=== PATIENT | female | born 1975 | race Hispanic/Latino ===

== ENCOUNTER 2023-12-30 16:00 | Observation (INO) | payer BC ==
[~2023-12-30] VITALS: Ht 152.4 cm; Wt 62.6 kg
[2023-12-30 17:11] LABS: ADD UA MICROSCOPIC YES; APPEARANCE,URINE CLOUDY (CLEAR); BILIRUBIN,URINE NEGATIVE (NEGATIVE); COLOR,URINE LIGHT-YELLOW (YELLOW); GLUCOSE, URINE (UA) NEGATIVE (NEGATIVE); KETONES,URINE 10 mg/dL (NEGATIVE); LEUKOCYTE ESTERASE ,URINE NEGATIVE Leu/uL (NEGATIVE); NITRATE,URINE NEGATIVE (NEGATIVE); OCCULT BLOOD,URINE MODERATE (NEGATIVE); PROTEIN,URINE 10 mg/dL (NEGATIVE)
[2023-12-30 17:14] LABS: BACTERIA,URINE RARE /HPF (None Seen); MUCUS,URINE RARE LPF (None Seen); SQUAMOUS EPITHELIAL CELL,UR MOD /HPF (0-2); YEAST,URINE BUDDING RARE /HPF (None Seen)
[2023-12-30 17:17] LABS: BASOPHILS # (AUTO) 0.04 K/uL (0.00-0.20); BASOPHILS % (AUTO) 0.4 % (0.0-5.0); EOSINOPHILS # (AUTO) 0.09 K/uL (0.00-0.70); EOSINOPHILS % (AUTO) 0.9 % (0.0-8.0); HEMATOCRIT 43.6 % (36-48); IMMATURE GRANULOCYTE ABSOLUTE 0.03 K/uL (0-1); LYMPHOCYTES # (AUTO) 2.4 K/uL (1.0-4.8); LYMPHOCYTES % (AUTO) 22.9 % (21.0-51.0); MEAN CORPUSCULAR HEMOGLOBIN 30.9 pg (27.0-33.0); MEAN CORPUSCULAR HGB CONC 33.5 g/dL (32.0-36.0); MEAN CORPUSCULAR VOLUME 92.2 fL (79-99); MONOCYTES # (AUTO) 0.5 K/uL (0.1-1.0); MONOCYTES % (AUTO) 5.2 % (3.0-13.0); NEUTROPHILS # (AUTO) 7.3 K/uL (1.8-7.7); NEUTROPHILS % (AUTO) 70.3 % (40.0-77.0); PLATELET COUNT (AUTO) 321 K/uL (130-400); RED BLOOD CELL COUNT(AUTO) 4.73 MIL/uL (4.00-5.50); RED CELL DISTRIBUTION WIDTH 12.8 % (11.0-15.5); WHITE BLOOD COUNT (AUTO) 10.3 K/uL (4.8-10.8)
[2023-12-30] MEDS: ASPIRIN 325MG TAB PO ONE (17:28)
[2023-12-30 17:36] LABS: ALBUMIN 3.5 g/dL (3.5-5.0); BILIRUBIN,TOTAL 0.3 mg/dL (0.2-1.0); CREATININE 0.9 mg/dL (0.5-1.5); TOTAL PROTEIN, SERUM 8.2 g/dL (6.0-8.3)
[2023-12-30 17:37] LABS: POTASSIUM 2.6 mmol/L (3.5-5.1)
[2023-12-30] MEDS: KCL 20 MEQ ERTAB PO ONE (18:15)
[2023-12-30] MEDS: METOPROLOL TARTRATE 25 MG TAB PO ONE (18:33)
[2023-12-30] MEDS ORDERED: MAGNESIUM 2GM PREMIX 50ML 50 ML IV PRN (20:00)
[2023-12-30] MEDS ORDERED: MORPHINE 2 MG SYG IV PRN (20:00)
[2023-12-30] MEDS ORDERED: ACETAMINOPHEN 325 MG TAB PO PRN ×2 (20:00)
[2023-12-30] MEDS ORDERED: POTASSIUM CHLORIDE 20MEQ/100ML 100 ML IV PRN (20:00)
[2023-12-30] MEDS ORDERED: POTASSIUM CHLORIDE 10% ELIXIR 20 MEQ/15 ML UDCUP PO PRN (20:00)
[2023-12-30] MEDS ORDERED: ONDANSETRON 4MG INJ IV PRN (20:00)
[2023-12-30] MEDS: FAMOTIDINE 20MG TAB PO SCH (20:15)
[2023-12-30] MEDS: KCL 20 MEQ ERTAB PO PRN (20:15)
[2023-12-30] MEDS: LACTATED RINGERS 1000ML 1,000 ML IV SCH (20:16)
[2023-12-30] MEDS: NITROGLYCERIN 1GM OINT 1 INCH/1GM TD SCH (20:16)
[2023-12-30] MEDS ORDERED: METOPROLOL TARTRATE 25 MG TAB PO SCH (21:00)
[2023-12-31 03:00] VITALS: O2SAT 98
[2023-12-31] MEDS: POTASSIUM CHLORIDE 10% ELIXIR 20 MEQ/15 ML UDCUP PO ONE (07:00)
[2023-12-31 07:35] LABS: BASOPHILS # (AUTO) 0.02 K/uL (0.00-0.20); BASOPHILS % (AUTO) 0.3 % (0.0-5.0); EOSINOPHILS # (AUTO) 0.12 K/uL (0.00-0.70); EOSINOPHILS % (AUTO) 1.5 % (0.0-8.0); HEMATOCRIT 35.1 % (36-48); IMMATURE GRANULOCYTE ABSOLUTE 0.02 K/uL (0-1); LYMPHOCYTES # (AUTO) 2.5 K/uL (1.0-4.8); LYMPHOCYTES % (AUTO) 31.1 % (21.0-51.0); MEAN CORPUSCULAR HEMOGLOBIN 30.5 pg (27.0-33.0); MEAN CORPUSCULAR HGB CONC 33.3 g/dL (32.0-36.0); MEAN CORPUSCULAR VOLUME 91.6 fL (79-99); MONOCYTES # (AUTO) 0.5 K/uL (0.1-1.0); MONOCYTES % (AUTO) 5.6 % (3.0-13.0); NEUTROPHILS # (AUTO) 4.9 K/uL (1.8-7.7); NEUTROPHILS % (AUTO) 61.2 % (40.0-77.0); PLATELET COUNT (AUTO) 250 K/uL (130-400); RED BLOOD CELL COUNT(AUTO) 3.83 MIL/uL (4.00-5.50)
[2023-12-31 07:49] LABS: HEMOGLOBIN A1C 5.2 % (4.0-6.0)
[2023-12-31 08:20] LABS: ALBUMIN 2.8 g/dL (3.5-5.0); BILIRUBIN,TOTAL 0.4 mg/dL (0.2-1.0); CREATININE 0.7 mg/dL (0.5-1.5); MAGNESIUM 2.1 mg/dL (1.80-2.40); POTASSIUM 3.6 mmol/L (3.5-5.1); THYROID STIMULATING HORMONE 2.74 uIU/mL (0.36-3.74); TOTAL PROTEIN, SERUM 6.4 g/dL (6.0-8.3)
[2023-12-31] MEDS: METOPROLOL TARTRATE 25 MG TAB PO SCH (09:29)
[2023-12-31] MEDS: ASPIRIN 81 MG EC TAB PO SCH (09:29)
[2023-12-31] MEDS: LISINOPRIL 20 MG TABLET PO SCH (09:29)
[2023-12-31] MEDS: ENOXAPARIN SODIUM 30 MG/0.3 ML SQ SCH (09:30)
[2023-12-31 12:00] VITALS: BP 97/50; PULSE 64; RESP 16
[2023-12-31] MEDS ORDERED: LISI20TA24 PO (14:58)
[2023-12-31] MEDS ORDERED: AEC81 PO (14:59)
[2023-12-31] MEDS ORDERED: CEFTRIAXONE 2GM VIAL IVPB ONE (15:00)
[2023-12-31 16:00] VITALS: BP 98/56; PULSE 65; RESP 16
[2024-01-10] MEDS ORDERED: ASPI-1005 PO (09:22)
[2024-01-10] MEDS ORDERED: LISI10TA24 PO (09:22)
[2024-01-10] MEDS ORDERED: ISOS30TA92 PO (09:22)
== END 2023-12-31 18:01 | disposition home or self-care (01) ==
LOC: EDH 16:00 → INTOOBSV 19:41 → EDHIP 19:41
PROVIDERS: ADMIT Internal Medicine; ATTEND Internal Medicine
DX: I11.9 Hypertensive heart disease without heart failure (principal); E87.6 Hypokalemia; M54.2 Cervicalgia; R51.9 Headache, unspecified; N39.0 Urinary tract infection, site not specified; Z90.49 Acquired absence of other specified parts of digestive tract; Z79.899 Other long term (current) drug therapy; Z98.51 Tubal ligation status; Z79.82 Long term (current) use of aspirin
CPT/HCPCS: 96360; 96361 ×2; 99285; 84484 ×4; 80053 ×2; 85025 ×2; 85378; 81001; 36415 ×2; 71045; 93005 ×2; 96372; 83036; 84443; 83735; 80061; 93306; 93356; G0378 ×2; J1650